=== PATIENT | male | born 1995 | race Caucasian/White ===

== ENCOUNTER 2020-01-23 20:56 | Emergency (ER) | payer OTHER ==
--- NOTE | 2020-01-23 21:08 | ED Physician Documentation ---
PD HPI UPPER EXT INJURY - Stated complaint Stated Complaint: FINGER LAC - Chief complaint Chief Complaint: Laceration - History obtained from History obtained from: Patient - History of Present Illness Location: Left, Finger (dorsal index finger at PIP joint.) Type of injury: Laceration (cutting food for dinner and accidentally cut his left index finger. cleansed it and held direct pressure, but the wound opens and bleeds without pressure and with any mild flexion. Here for evaluation.) Where injury occurred: Home Timing - onset: Today Timing - details: Abrupt onset, Still present Worsened by: Palpating Associated symptoms: No: Weakness, Numbness, Swelling Similar symptoms before: Has not had sx before Review of Systems Skin: reports: Laceration (s) Neurologic: denies: Focal weakness, Numbness PD PAST MEDICAL HISTORY - Past Medical History Past Medical History: No - Present Medications Home Medications: Ambulatory Orders Medication Instructions Recorded Confirmed No Known Home Medications 01/23/20 01/23/20 - Allergies Allergies/Adverse Reactions: Allergies Allergy/AdvReac Type Severity Reaction Status Date / Time Sulfa (Sulfonamide Allergy Hives Verified 01/23/20 21:08 Antibiotics) PD ED PE NORMAL - Vitals Vital signs reviewed: Yes - General General: Alert and oriented X 3, No acute distress, Well developed/nourished - Derm Derm: Normal color, Warm and dry - Extremities Extremities: Other (left index finger dorsally at PIP joint showing 1 cm laceration full through skin but not involving tendon. Some mild bleeding without direct pressure. He has full extension against resistance without pain. Normal color and sensation at end of finger. ) Results - Vitals Vitals: Vital Signs - 24 hr 01/23/20 21:00 Temperature 36.8 C Heart Rate 116 H Respiratory 18 Rate Blood Pressure 131/59 H O2 Saturation 96 Oxygen O2 Source Room air Procedures - Laceration (location) left index finger Wound type: Linear, Into subcut fat, Clean. No: Into muscle Neurovascular status: Sensory intact, Motor intact, Vascular intact Tendon involvement: Tendon intact Anesthesia: Lidocaine 1% Wound Preparation: Wound explored, To the base. No: FB identified Skin layer closure: Nylon, Running, Size #-0 - enter number (4), Sutures - enter # (5) PD MEDICAL DECISION MAKING - ED course Complexity details: considered differential (ongoing bleeding and over a joint, so suturing is indicated as best treatment. ), d/w patient Departure - Departure Disposition: 01 Home, Self Care Clinical Impression: Finger laceration Qualifiers: Encounter type: initial encounter Finger: index finger Damage to nail status: without damage Foreign body presence: without foreign body Laterality: left Qualified Code(s): S61.211A - Laceration without foreign body of left index finger without damage to nail, initial encounter Condition: Stable Record reviewed to determine appropriate education?: Yes Instructions: ED Laceration Hand Follow-Up: ROLANDO Brennan [Provider Group] Comments: It is okay to wash and shower. Clean off the wound twice a day with soap and water, or peroxide and water. Apply some antibiotic ointment to it to keep it moist. Also to watch for signs of infection such as purulence, redness or increasing pain. Return to your primary care or the ER at the specified time for suture removal. Suture removal in 7-10. Discharge Date/Time: 01/23/20 21:38
[2020-01-23 21:12] VITALS: BP 131/59
== END 2020-01-23 21:38 | disposition home or self-care (01) ==
LOC: ED 20:56
DX: S61.211A Laceration without foreign body of left index finger without damage to nail, initial encounter (principal); W26.0XXA Contact with knife, initial encounter; Y93.G1 Activity, food preparation and clean up; Y92.009 Unspecified place in unspecified non-institutional (private) residence as the place of occurrence of the external cause
CPT/HCPCS: 12001; 99281; 99282